=== PATIENT | male | born 1980 | race Caucasian/White ===

== ENCOUNTER 2018-09-29 17:40 | Emergency (ER) | payer OTHER ==
[2018-09-29] MEDS ORDERED: Ibuprofen TAB* 600 MG PO ONE (18:08)
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
[2018-09-29] MEDS ORDERED: Cyclobenzaprine TAB* 10 MG PO ONE (21:11)
[2018-09-29 21:46] VITALS: BP 119/86
== END 2018-09-29 21:46 | disposition home or self-care (01) ==
LOC: ED 17:40
DX: M54.2 Cervicalgia (principal); V49.40XA Driver injured in collision with unspecified motor vehicles in traffic accident, initial encounter
CPT/HCPCS: 72125; 72128; 99282; A9270-GY